=== PATIENT | male | born 1975 | race Caucasian/White ===

== ENCOUNTER 2018-04-15 10:02 | Outpatient (REF) | payer OTHER, SELFPAY ==
[2018-04-15 21:59] LABS: Abs Immature Grans 0.01 k/cumm (0.0-0.09); Absolute Basophil Count 0.02 k/cumm (0.0-0.2); Absolute Eosinophil Count 0.07 k/cumm (0.0-0.7); Absolute Lymphocyte Count 1.09 k/cumm (1.2-3.4); Absolute Monocyte Count 0.22 k/cumm (0.11-0.7); Absolute Neutrophil Count 2.52 k/cumm (1.2-6.7); Basophils % 0.5; Eosinophils % 1.8; HCT 45.4 % (40.0-50.0); HGB 15.3 g/dL (13.5-17.5); Immature Grans % 0.3; Lymphocytes % 27.7; Mean Corp. HGB Concentration 33.7 g/dL (32.0-36.0); Mean Corpuscular Hemoglobin 29.3 pg (27.0-33.0); Mean Platelet Volume 10.6 fL (8.0-11.0); Monocytes % 5.6; Neutrophils % 64.1; Platelet Count 188 x1000/uL (130-400); RBC 5.22 m/cumm (4.50-6.00); RBC Distribution Width 14.2 % (11.8-14.1); White Blood Cell Count 3.93 k/cumm (4.4-10.8)
[2018-04-15 22:38] LABS: C-Reactive Protein 0.58 mg/dL (0.0-0.3)
[2018-04-15 23:09] LABS: ESR 10 MM/HR (0-15)
[2018-04-19 09:34] LABS: Cyclic Citrullinated Peptide <2.5 U/mL (<5.0)
[2018-04-19 11:47] LABS: Rheumatoid Factor <8 IU/mL (<12.5)
[2018-04-19 13:17] LABS: Lyme Ab w Rflx to Lyme Confirm Negative
== END 2018-04-15 10:03 ==
LOC: NCHCN 10:02
PROVIDERS: PCP Family Medicine; Visit Provider Family Medicine
DX: M13.80 Other specified arthritis, unspecified site (principal); I10 Essential (primary) hypertension
CPT/HCPCS: 85652; 86200; 85025; 86140; 86431; 86618

== ENCOUNTER 2018-06-24 12:46 | Outpatient (REF) | payer OTHER, SELFPAY ==
[2018-06-24 21:14] LABS: Abs Immature Grans 0.07 k/cumm (0.0-0.09); Absolute Basophil Count 0.02 k/cumm (0.0-0.2); Absolute Lymphocyte Count 0.73 k/cumm (1.2-3.4); Absolute Monocyte Count 0.36 k/cumm (0.11-0.7); Basophils % 0.3; HCT 43.3 % (40.0-50.0); HGB 14.5 g/dL (13.5-17.5); Immature Grans % 1.1; Lymphocytes % 11.3; Mean Corp. HGB Concentration 33.5 g/dL (32.0-36.0); Mean Corpuscular Hemoglobin 29.6 pg (27.0-33.0); Mean Corpuscular Volume 88.4 fL (80-95); Mean Platelet Volume 11.1 fL (8.0-11.0); Monocytes % 5.6; Neutrophils % 81.7; Platelet Count 148 x1000/uL (130-400); RBC Distribution Width 14.1 % (11.8-14.1); White Blood Cell Count 6.48 k/cumm (4.4-10.8)
[2018-06-24 21:42] LABS: BUN 26 mg/dL (7-18); CREATININE 0.96 mg/dL (0.70-1.30); Calcium 9.2 mg/dL (8.5-10.1); Chloride 100 mmol/L (98-107); Glucose 236 mg/dL (70-100); Potassium 4.3 mmol/L (3.5-5.1); Sodium 139 mmol/L (136-145)
[2018-06-24 21:51] LABS: C-Reactive Protein 0.76 mg/dL (0.0-0.3); Uric Acid 8.3 mg/dL (3.5-7.2)
[2018-06-24 22:29] LABS: ESR 10 MM/HR (0-15)
== END 2018-06-24 13:06 ==
LOC: NCHCN 12:46
PROVIDERS: PCP Family Medicine; Visit Provider Nurse Practitioner Family
DX: R22.32 Localized swelling, mass and lump, left upper limb (principal); M79.642 Pain in left hand; M79.645 Pain in left finger(s)
CPT/HCPCS: 80048; 85652; 84550; 85025; 86140

== ENCOUNTER 2018-09-03 09:31 | Outpatient (REF) | payer OTHER, SELFPAY ==
[2018-09-03 21:29] LABS: Glucose 143 mg/dL (70-100); Uric Acid 6.4 mg/dL (3.5-7.2)
== END 2018-09-03 09:51 ==
LOC: NCHCN 09:31
PROVIDERS: PCP Family Medicine; Visit Provider Family Medicine
DX: M1A.9XX0 Chronic gout, unspecified, without tophus (tophi) (principal); E11.9 Type 2 diabetes mellitus without complications
CPT/HCPCS: 82947; 84550

== ENCOUNTER 2018-12-10 21:14 | Outpatient (REF) | payer OTHER, SELFPAY ==
[2018-12-10 22:02] LABS: COMMENT (LAB VIEW ONLY) 103.98 mg/dL; Microalb ug/mg Crea 3.8 ug/mg Cr
== END 2018-12-10 21:34 ==
LOC: NCHCN 21:14
PROVIDERS: PCP Family Medicine; Visit Provider Family Medicine
DX: E11.9 Type 2 diabetes mellitus without complications (principal)
CPT/HCPCS: 82043; 82570

== ENCOUNTER 2019-06-16 22:37 | Outpatient (REF) | payer OTHER, SELFPAY ==
[2019-06-16 22:39] LABS: Anion Gap 5.2 mmol/L (3-11); BUN 16 mg/dL (7-18); CO2 33.8 mmol/L (21.0-32.0); CREATININE 0.95 mg/dL (0.70-1.30); Calcium 9.1 mg/dL (8.5-10.1); Calculated LDL 115 mg/dL; Chloride 103 mmol/L (98-107); Cholesterol 180 mg/dL (50-200); Glucose 152 mg/dL (70-100); HDL Cholesterol 51 mg/dL (40-60); Potassium 4.6 mmol/L (3.5-5.1); Sodium 142 mmol/L (136-145); Triglyceride 70 mg/dL (30-150)
== END 2019-06-16 22:57 ==
LOC: NCHCN 22:37
PROVIDERS: PCP Family Medicine; Visit Provider Family Medicine
DX: I10 Essential (primary) hypertension (principal); E11.9 Type 2 diabetes mellitus without complications; E66.01 Morbid (severe) obesity due to excess calories; M1A.9XX0 Chronic gout, unspecified, without tophus (tophi)
CPT/HCPCS: 80048; 80061; 84550

== ENCOUNTER 2020-10-26 09:50 | Outpatient (REF) | payer OTHER, SELFPAY ==
[2020-10-26 13:53] LABS: ALT 22 U/L (16-63); AST 26 U/L (15-37); Albumin 4.1 g/dL (3.4-5.0); Alkaline Phosphatase 52 U/L (46-116); Anion Gap 6.2 mmol/L (3-11); BUN 20 mg/dL (7-18); CO2 32.8 mmol/L (21.0-32.0); CREATININE 0.9 mg/dL (0.70-1.30); Calcium 9.6 mg/dL (8.5-10.1); Calculated LDL 80 mg/dL (<100); Chloride 100 mmol/L (98-107); Cholesterol 142 mg/dL (<200); Glucose 106 mg/dL (74-106); HDL Cholesterol 56 mg/dL (40-60); Potassium 4.8 mmol/L (3.5-5.1); Sodium 139 mmol/L (136-145); Total Protein 7.1 g/dL (6.4-8.2); Triglyceride 34 mg/dL (<150)
== END 2020-10-26 09:51 | disposition home or self-care (01) ==
LOC: NCHCN 09:50
PROVIDERS: PCP Family Medicine; Visit Provider Family Medicine
DX: E11.9 Type 2 diabetes mellitus without complications (principal); I10 Essential (primary) hypertension; E78.5 Hyperlipidemia, unspecified
CPT/HCPCS: 80053; 80061

== ENCOUNTER 2020-10-30 16:55 | Outpatient (REF) | payer OTHER, SELFPAY ==
[2020-10-30 21:52] LABS: COMMENT (LAB VIEW ONLY) 133.19 mg/dL; Microalb ug/mg Crea 3.5 ug/mg Cr
== END 2020-10-30 16:56 | disposition home or self-care (01) ==
LOC: NCHCN 16:55
PROVIDERS: PCP Family Medicine; Visit Provider Family Medicine
DX: E88.81 Metabolic syndrome and other insulin resistance (principal)
CPT/HCPCS: 82043; 82570

== ENCOUNTER 2020-11-09 16:01 | Outpatient (REF) | payer OTHER, SELFPAY ==
--- NOTE | 2020-11-09 11:45 | SKI_PTH ---
PATIENT: Ritchie Wilkins LOC: [facility] U#:[id number] AGE/SX: 45/M ROOM: RE11/09/[address]: Sherri James : 1975 BED: DIS: 11/09/2020 SPEC #: [id number] RECD: 11/12/20 12:27 STATUS: DANICA RICHARDSON #: [id number] SHAWN: 11/09/20 11:[address]: Sherri James DEPT: Surgical Specimen RECD BY: Jennifer Green Tissues: 1 - SKIN BIOPSY(SHAVE/PUNCH) Procedures: SKIN LEVEL 4 Comments: [id number]
== END 2020-11-09 16:02 | disposition home or self-care (01) ==
LOC: NCHCN 16:01
PROVIDERS: PCP Family Medicine; Visit Provider Family Medicine
DX: D22.5 Melanocytic nevi of trunk (principal)
CPT/HCPCS: 88305

== ENCOUNTER 2021-10-22 09:45 | Outpatient (REF) | payer OTHER, SELFPAY ==
[2021-10-22 14:51] LABS: Hemoglobin A1C 6.3 % (<5.7)
[2021-10-22 15:12] LABS: ALT 19 U/L (16-63); AST 19 U/L (15-37); Albumin 3.9 g/dL (3.4-5.0); Alkaline Phosphatase 54 U/L (46-116); Anion Gap 9.2 mmol/L (3-11); BUN 18 mg/dL (7-18); Bilirubin, Total 0.9 mg/dL (0.2-1.0); CO2 29.8 mmol/L (21.0-32.0); CREATININE 0.8 mg/dL (0.70-1.30); Calcium 8.8 mg/dL (8.5-10.1); Calculated LDL 86 mg/dL (<100); Chloride 106 mmol/L (98-107); Cholesterol 146 mg/dL (<200); Glucose 125 mg/dL (74-106); HDL Cholesterol 54 mg/dL (40-60); Potassium 4.2 mmol/L (3.5-5.1); Sodium 145 mmol/L (136-145); Total Protein 6.7 g/dL (6.4-8.2); Triglyceride 34 mg/dL (<150)
== END 2021-10-22 09:46 | disposition home or self-care (01) ==
LOC: NCHCN 09:45
PROVIDERS: PCP Family Medicine; Visit Provider Family Medicine
DX: E11.9 Type 2 diabetes mellitus without complications (principal); I10 Essential (primary) hypertension; E66.01 Morbid (severe) obesity due to excess calories; E78.5 Hyperlipidemia, unspecified
CPT/HCPCS: 80053; 80061; 83036

== ENCOUNTER 2022-05-05 15:57 | Outpatient (REF) | payer MEDICARE, SELFPAY ==
[2022-05-06 17:45] LABS: Albumin, Ur < 0.6 mg/dL (See Note); Creatinine, Ur 67.2 mg/dL (See Note)
== END 2022-05-05 15:58 | disposition home or self-care (01) ==
LOC: NCHCN 15:57
PROVIDERS: PCP Family Medicine; Visit Provider Family Medicine
DX: I10 Essential (primary) hypertension (principal); E11.9 Type 2 diabetes mellitus without complications; E66.9 Obesity, unspecified
CPT/HCPCS: 82043; 82570

== ENCOUNTER 2022-11-03 10:20 | Outpatient (REF) | payer MEDICARE, SELFPAY ==
[2022-11-03 15:44] LABS: ALT 39 U/L (16-63); AST 39 U/L (15-37); Albumin 3.9 g/dL (3.4-5.0); Alkaline Phosphatase 54 U/L (46-116); Anion Gap 4.7 mmol/L (3-11); BUN 14 mg/dL (7-18); Bilirubin, Total 0.8 mg/dL (0.2-1.0); CO2 33.3 mmol/L (21.0-32.0); CREATININE 0.9 mg/dL (0.70-1.30); Calcium 9.3 mg/dL (8.5-10.1); Chloride 104 mmol/L (98-107); Estimated GFR 106.01 (mL/min/1.73m2); Glucose 156 mg/dL (74-106); Potassium 4.1 mmol/L (3.5-5.1); Sodium 142 mmol/L (136-145); Total Protein 6.9 g/dL (6.4-8.2); Uric Acid 5.3 mg/dL (3.5-7.2)
[2022-11-03 16:08] LABS: Calculated LDL 74 mg/dL (<100); Cholesterol 139 mg/dL (<200); HDL Cholesterol 56 mg/dL (40-60); Triglyceride 48 mg/dL (<150)
== END 2022-11-03 10:21 | disposition home or self-care (01) ==
LOC: NCHCN 10:20
PROVIDERS: PCP Family Medicine; Visit Provider Family Medicine
DX: E11.9 Type 2 diabetes mellitus without complications (principal); I10 Essential (primary) hypertension; E66.01 Morbid (severe) obesity due to excess calories; E78.5 Hyperlipidemia, unspecified; M1A.9XX0 Chronic gout, unspecified, without tophus (tophi); Z12.5 Encounter for screening for malignant neoplasm of prostate
CPT/HCPCS: 80053; 80061; 84153; 84550

== ENCOUNTER 2023-05-08 10:55 | Outpatient (REF) | payer MEDICARE, SELFPAY ==
[2023-05-08 17:06] LABS: COMMENT (LAB VIEW ONLY) 83.07 mg/dL; Microalb ug/mg Crea 4.9 ug/mg Cr
== END 2023-05-08 10:56 | disposition home or self-care (01) ==
LOC: NCHCN 10:55
PROVIDERS: PCP Family Medicine; Visit Provider Family Medicine
DX: R07.89 Other chest pain (principal); E11.9 Type 2 diabetes mellitus without complications
CPT/HCPCS: 82043; 82570

== ENCOUNTER 2023-11-06 15:52 | Outpatient (REF) | payer OTHER, SELFPAY ==
[2023-11-06 16:09] LABS: Anion Gap 10.2 mmol/L (3-11); BUN 23 mg/dL (7-18); CO2 27.8 mmol/L (21.0-32.0); Calcium 9.6 mg/dL (8.5-10.1); Calculated LDL 64 mg/dL (<100); Chloride 102 mmol/L (98-107); Cholesterol 132 mg/dL (<200); Estimated GFR 92.84 (mL/min/1.73m2); Glucose 270 mg/dL (74-106); HDL Cholesterol 55 mg/dL (40-60); Potassium 4.1 mmol/L (3.5-5.1); Sodium 140 mmol/L (136-145); Triglyceride 66 mg/dL (<150)
[2023-11-06 16:15] LABS: Hemoglobin A1C 6.6 % (<5.7)
== END 2023-11-06 15:53 | disposition home or self-care (01) ==
LOC: NCHCN 15:52
PROVIDERS: PCP Family Medicine; Visit Provider Family Medicine
DX: E78.5 Hyperlipidemia, unspecified (principal); E11.9 Type 2 diabetes mellitus without complications; I10 Essential (primary) hypertension
CPT/HCPCS: 80048; 80061; 83036

== ENCOUNTER 2024-05-06 09:21 | Outpatient (REF) | payer OTHER, SELFPAY ==
[2024-05-06 15:25] LABS: COMMENT (LAB VIEW ONLY) 159.42 mg/dL
[2024-05-06 15:26] LABS: Microalb ug/mg Crea 148.3 ug/mg Cr
== END 2024-05-06 09:22 | disposition home or self-care (01) ==
LOC: NCHCN 09:21
PROVIDERS: PCP Family Medicine; Visit Provider Family Medicine
DX: E11.9 Type 2 diabetes mellitus without complications (principal)
CPT/HCPCS: 82043; 82570

== ENCOUNTER 2025-05-05 11:46 | Outpatient (REF) | payer MEDICARE, SELFPAY ==
[2025-05-05 16:26] LABS: Hemoglobin A1C 6.0 % (<5.7)
[2025-05-05 16:35] LABS: COMMENT (LAB VIEW ONLY) 99.42 mg/dL; Microalb ug/mg Crea 3.9 ug/mg Cr
[2025-05-05 16:43] LABS: Anion Gap 7.9 mmol/L (3-11); BUN 20 mg/dL (7-18); CO2 33.1 mmol/L (21.0-32.0); Calcium 9.7 mg/dL (8.5-10.1); Calculated LDL 116 mg/dL (<100); Chloride 102 mmol/L (98-107); Cholesterol 190 mg/dL (<200); Estimated GFR 92.26 (mL/min/1.73m2); Glucose 112 mg/dL (74-106); HDL Cholesterol 65 mg/dL (>or=40); Potassium 4.3 mmol/L (3.5-5.1); Sodium 143 mmol/L (136-145); Triglyceride 47 mg/dL (<150)
[2025-05-05 16:56] LABS: Uric Acid 4.1 mg/dL (3.5-7.2)
[2025-05-05 22:26] LABS: PSA, Screening 0.5 ng/mL (<=2.5)
== END 2025-05-05 11:47 | disposition home or self-care (01) ==
LOC: NCHCN 11:46
PROVIDERS: PCP Family Medicine; Visit Provider Family Medicine
DX: E78.49 Other hyperlipidemia (principal); E11.8 Type 2 diabetes mellitus with unspecified complications; Z12.5 Encounter for screening for malignant neoplasm of prostate
CPT/HCPCS: 80048; 80061; 84153; 82043; 82570; 83036; 84550